=== PATIENT | male | born 1970 | race Caucasian/White ===

== ENCOUNTER 2018-11-23 09:01 | Emergency (ER) | payer SELFPAY ==
[~2018-11-23] VITALS: Ht 172.7 cm; Wt 81.6 kg
--- NOTE | 2018-11-23 09:19 | NUR ---
ED Nurse Note: patient walked in to ER c/o both hips pain. pt aao x4 and ambulatory but unsteady gait due to severe pain. per pt, he was picking up something from lower level and he felt hips dislocating. since then pt has been 10/10 and not getting better. skin clean and intact. no open wound or bruises noted at this time.
--- NOTE | 2018-11-23 09:22 | NUR ---
ED Nurse Note: ERMD at bedside assessing patient.
[2018-11-23] MEDS ORDERED: Ketorolac 30mg Inj IM ONE (09:30)
[2018-11-23] MEDS ORDERED: Morphine Sulfate 2mg/ml Inj(IV/IM USE ONLY) IM ONE (09:30)
--- NOTE | 2018-11-23 09:37 | Emergency Room Report ---
History of Present Illness General Chief Complaint: Lower Extremity Injury Source: Patient Present Illness HPI 48-year-old male presents ED for evaluation. Patient walked in complaining of right hip pain started 4 days ago after he bent over to lemon picker something and felt a "pop" in his right hip. States she's been having persistent pain since. Is a 9 out of 10, throbbing, nonradiating. States he is able to bear weight but with pain. States that when he was younger he is to wear a brace because of problems with his legs. Is not know the diagnosis. Denies any bowel or bladder incontinence. Denies any leg or motor weakness. Denies any back pain. No other aggravating relieving factors. Denies any other associated symptoms Allergies: Coded Allergies: No Known Allergies (Unverified , 11/23/18) Patient History Past Medical History: none Past Surgical History: none Pertinent Family History: none Social History: Denies: smoking, alcohol use, drug use Immunizations: UTD Reviewed Nursing Documentation: PMH: Agreed; PSxH: Agreed Nursing Documentation-PMH Past Medical History: No History, Except For Review of Systems All Other Systems: negative except mentioned in HPI Physical Exam Vital Signs Date Time Temp Pulse Resp B/P (MAP) Pulse Ox O2 Delivery O2 Flow Rate FiO2 11/23/18 09:08 97.5 112 22 156/99 (118) 98 Room Air Sp02 EP Interpretation: reviewed, normal General Appearance: alert, GCS 15, non-toxic, mild distress Head: normocephalic Eyes: bilateral eye normal inspection, bilateral eye PERRL ENT: normal ENT inspection Neck: normal inspection Respiratory: normal inspection Cardiovascular #1: normal inspection Gastrointestinal: normal inspection Rectal: deferred Genitourinary: no CVA tenderness Musculoskeletal: tender - R hip Neurologic: alert, oriented x3, responsive, motor strength/tone normal, sensory intact, speech normal Psychiatric: normal inspection Skin: normal inspection Lymphatic: normal inspection Medical Decision Making Diagnostic Impression: Primary Impression: Hip strain Qualified Codes: S76.011A - Strain of muscle, fascia and tendon of right hip, initial encounter ER Course Hospital Course 48-year-old M presents to ED complaining of R hip pain Differential diagnoses include: Fracture, dislocation, sprain, contusion Clinical course Patient placed on stretcher. After initial history and physical, I ordered pain medications and Xrays of R hip Xrays read shows no acute fracture/dislocation. Discussed with patient. Likely strain. We'll discharged to home. I reviewed EMR patient was prescribed 6 tablets of tramadol on 11/20. By his PMD at [place]. states that it did not help his pain. I agreed to provide him with short course of oral [place] but explained that he needs to follow-up with his PMD for additional pain medication i'll provide ortho referrals Diagnosis - hip strain Stable and discharged to home with prescription for Motrin, [place]. weight bear as tolerated. Followup with PMD/ortho. Return to ED if symptoms recur or worsen Other X-Ray Diagnostic Results Other X-Ray Diagnostic Results : X-Ray ordered: R hip # of Views/Limited Vs Complete: 2 View, 3 View Indication: Pain EP Interpretation: Yes Interpretation: no dislocation, no soft tissue swelling, no fractures Impression: No acute disease Electronically Signed by: Electronically signed by Ming Meza MD Last Vital Signs Date Time Temp Pulse Resp B/P (MAP) Pulse Ox O2 Delivery O2 Flow Rate FiO2 11/23/18 09:08 97.5 112 22 156/99 (118) 98 Room Air Status: improved Disposition: HOME, SELF-CARE Condition: Stable Scripts Tramadol Hcl* (ULTRAM*) 50 Mg Tablet 50 MG ORAL Q6H PRN for For Pain, #12 TAB 0 Refills Prov: Ming Meza MD 11/23/18 Ibuprofen* (MOTRIN*) 600 Mg Tablet 600 MG ORAL Q8H PRN for For Pain, #30 TAB 0 Refills Prov: Ming Meza MD 11/23/18 Ming Meza MD Nov 23, 2018 09:37
--- NOTE | 2018-11-23 10:15 | Diagnostic Imaging Report ---
RIGHT HIP, Views INDICATION: Pain COMPARISON: None FINDINGS: 3 views of the right hip are obtained. Bony structures are intact. Bone mineralization is within normal limits. No hip dislocation. Joint spaces are preserved. Soft tissues are within normal limits. IMPRESSION: No acute fracture or dislocation identified.
[2018-11-23] MEDS ORDERED: TRAMADOL HCL50 MG ORAL (10:52)
[2018-11-23] MEDS ORDERED: IBUPROFEN600 MG ORAL (10:52)
--- NOTE | 2018-11-23 10:52 | NUR ---
ED Nurse Note: ERMD at bedside and explaining pt about medications that he will prescribe.
[2018-11-23 10:58] VITALS: BP 145/85
--- NOTE | 2018-11-23 10:59 | NUR ---
ER DISCHARGE NOTE: Patient is cleared to be discharged per ERMD after discussing about x-ray result, pt is aox4, on room air, with stable vital signs. pt was given dc and prescription instructions, pt was able to verbalize understanding, pt id band removed. pt is able to ambulate with weak but steady gait due to pain. pt took all belongings.
[2018-11-23] MEDS ORDERED: NORCO 5-325 TA1 EACH ORAL (11:32)
== END 2018-11-23 10:58 | disposition home or self-care (01) ==
LOC: EMR 09:32
DX: S76.011A Strain of muscle, fascia and tendon of right hip, initial encounter (principal); X50.1XXA Overexertion from prolonged static or awkward postures, initial encounter; Y92.9 Unspecified place or not applicable
CPT/HCPCS: 73502; 96372; 99283; J1885; J2270